=== PATIENT | female | born 1960 | race American Indian/Alaskan Native ===

== ENCOUNTER 2019-03-17 10:09 | Emergency (ER) | payer OTHER ==
[~2019-03-17 10:09] MED LIST: SODIUM CHLORIDE 0.9% 1000 ML 1,000 ML IV ONE
--- NOTE | 2019-03-17 10:52 | Emergency Department Report ---
ED Syncope HPI - General Chief Complaint: Syncope Stated Complaint: dizziness,weakness Source: patient, EMS - History of Present Illness Initial Comments: 58 yo F, hx of hypertension, presents to ED following syncopal episode this morning. Patient states she was in the kitchen about to make breakfast when she became dizzy and lightheaded and passed out. Patient states her daughter reports she hit her head when she fell, however patient denies headache currently. Patient reports URI symptoms over the last few days, for which she was given a prescription for amoxicillin, which she is currently taking. She denies any nausea or vomiting, but reports diarrhea. Patient denies abdominal pain, chest pain or shortness of breath. Timing/Prior Episodes: single episode today Precipitating Factors: Positive: lightheadedness Context: standing Loss of Consciousness: brief (seconds) Current Symptoms: back to normal. denies: chest pain, headache, nausea - Related Data Allergies/Adverse Reactions: Allergies hydrocodone Adverse Reaction (Verified 02/06/15 10:43) Nausea Home Medications: Ambulatory Orders Glimepiride [Amaryl] 1 mg PO QAM 02/06/15 Losartan/Hydrochlorothiazide [Hyzaar 100-25 TAB] 1 tab PO QDAY 02/06/15 cloNIDine [Catapres] 0.2 mg PO QHS 02/06/15 ED Review of Systems ROS: Stated complaint: dizziness,weakness Other details as noted in HPI Comment: All other systems reviewed and negative Constitutional: denies: chills, fever ENT: congestion Respiratory: cough Gastrointestinal: diarrhea. denies: abdominal pain, nausea, vomiting Neurological: denies: headache, weakness, numbness ED Past Medical Hx - Past Medical History Previous Medical History?: Yes Hx Hypertension: Yes Hx Diabetes: Yes - Social History Smoking Status: Never Smoker Substance Use Type: None - Medications Home Medications: Home Medications Medication Instructions Recorded Confirmed Last Taken Type Glimepiride [Amaryl] 1 mg PO QAM 02/06/15 02/06/15 Unknown History Losartan/Hydrochlorothiazide 1 tab PO QDAY 02/06/15 02/06/15 Unknown History [Hyzaar 100-25 TAB] cloNIDine [Catapres] 0.2 mg PO QHS 02/06/15 02/06/15 Unknown History ED Physical Exam - General Limitations: No Limitations General appearance: alert, in no apparent distress - Head Head exam: Present: atraumatic, normocephalic - Eye Eye exam: Present: normal appearance, PERRL, EOMI - ENT ENT exam: Present: mucous membranes moist - Neck Neck exam: Present: normal inspection - Respiratory Respiratory exam: Present: normal lung sounds bilaterally. Absent: respiratory distress - Cardiovascular Cardiovascular Exam: Present: regular rate, normal rhythm - GI/Abdominal GI/Abdominal exam: Present: soft. Absent: distended, tenderness - Extremities Exam Extremities exam: Present: normal inspection - Neurological Exam Neurological exam: Present: alert, oriented X3, CN II-XII intact. Absent: motor sensory deficit - Psychiatric Psychiatric exam: Present: normal affect, normal mood - Skin Skin exam: Present: warm, dry, intact, normal color ED Course Vital Signs 03/17/19 03/17/19 03/17/19 09:57 10:40 12:24 Temperature 98.2 F Pulse Rate 78 70 Pulse Rate [ 66 Lying] Pulse Rate [ 75 Sitting] Pulse Rate [ 95 H Standing] Respiratory 16 14 Rate Blood Pressure 106/62 Blood Pressure 117/61 [Left] Blood Pressure 114/61 [Lying] Blood Pressure 117/61 [Sitting] Blood Pressure 103/61 [Standing] O2 Sat by Pulse 100 100 Oximetry ED Medical Decision Making - Lab Data Result diagrams: 03/17/19 Unknown 03/17/19 Unknown - EKG Data -: EKG Interpreted by Me EKG shows normal: sinus rhythm, axis, intervals, QRS complexes, ST-T waves Rate: normal - EKG Data Interpretation: no acute changes, other (possible old anterior infarct) - Radiology Data Radiology results: report reviewed, image reviewed - Medical Decision Making 58 yo F w/ recent viral illness presents to ED following syncopal episode at home. Pt appears to be orthostatic here in ED. IV fluids given. Workup unremarkable including labs, EKG, CT, CXR. Pt feeling much better at this time. No neuro deficits on exam. Had meal tray here in ED. Feels comfortable w/ discharge home. PCP f/u advised. Return precautions given. - Differential Diagnosis arrythmia, dehydration, orthostatic dizziness, intracranial abnormality Critical care attestation.: If time is entered above; I have spent that time in minutes in the direct care of this critically ill patient, excluding procedure time. ED Disposition Clinical Impression: Orthostatic syncope Disposition: - TO HOME OR SELFCARE Is pt being admited?: No Condition: Stable Instructions: Dehydration (ED), Syncope (ED) Referrals: PRIMARY CARE, [Referring] - 3-5 Days [facility] [Provider Group] - 3-5 Days Forms: Work/School Release Form(ED) Time of Disposition: 13:09
[2019-03-17 11:11] LABS: BUN/Creatinine Ratio 12; Blood Urea Nitrogen 13 mg/dL (7-17); Hemolysis Index 76
[2019-03-17 11:12] LABS: Hematocrit 37.4 % (30.3-42.9); Hemoglobin 12.3 gm/dl (10.1-14.3); Mean Corpuscular HGB Conc 33 % (30-34); Mean Corpuscular Volume 87 fl (79-97); Platelet Count 163 K/mm3 (140-440); Red Blood Count 4.31 M/mm3 (3.65-5.03); Red Cell Distribution Width 14.7 % (13.2-15.2)
--- NOTE | 2019-03-17 11:23 | XRay Report ---
CHEST 1 VIEW INDICATION: syncope. COMPARISON: None. FINDINGS: Support devices: None. Heart: Within normal limits. Pulmonary vasculature: Normal. Lungs/Pleura: The lungs are normally expanded and clear. No pleural effusion. Additional findings: None. IMPRESSION: 1. Normal chest. Signer Name: Niko Charles MD Signed: 03/17/2019 11:19 AM Workstation Name: [id number]
--- NOTE | 2019-03-17 11:55 | Cat Scan Report ---
CT HEAD WITHOUT CONTRAST INDICATION / CLINICAL INFORMATION: syncope, injury. TECHNIQUE: All CT scans at this location are performed using CT dose reduction for ALARA by means of automated e xposure control. COMPARISON: None available. FINDINGS: HEMORRHAGE: No evidence of intracranial hemorrhage or extra-axial fluid collection. EXTRA-AXIAL SPACES: Cortical sulci, sylvian fissures and basilar cisterns have an unremarkable appear ance. VENTRICULAR SYSTEM: The ventricular system is of normal size and configuration. CEREBRAL PARENCHYMA: No areas of abnormal brain parenchymal attenuation are identified. There is no i ndication of recent infarction. MIDLINE SHIFT OR HERNIATION: There is no mass effect. CEREBELLUM / BRAINSTEM: Brainstem and cerebellum have an unremarkable appearance. INTRACRANIAL VESSELS:No abnormalities are identified on this noncontrast head CT. ORBITS: visualized portions of the orbits have an unremarkable appearance. SOFT TISSUES of HEAD: No significant abnormality. CALVARIUM: Evaluation of bone windows reveals no abnormalities. PARANASAL SINUSES / MASTOID AIR CELLS: Moderate opacification of bilateral ethmoid sinuses. ADDITIONAL FINDINGS: None. IMPRESSION: 1. No acute intracranial abnormality. 2. Ethmoid sinusitis. Signer Name: Niko Charles MD Signed: 03/17/2019 11:51 AM Workstation Name: [id number]
[2019-03-17 12:26] VITALS: BP 117/61
== END 2019-03-17 14:31 | disposition home or self-care (01) ==
LOC: ED 10:09
DX: R55 Syncope and collapse (principal); I10 Essential (primary) hypertension; E11.9 Type 2 diabetes mellitus without complications; Z79.899 Other long term (current) drug therapy; Z88.5 Allergy status to narcotic agent
CPT/HCPCS: 36415; 70450; 71045; 80048; 84484; 85025; 93005; 93010; 96360; 99285; J7030